=== PATIENT | male | born 1955 | race Caucasian/White ===

== ENCOUNTER 2017-05-05 08:32 | Inpatient (IN) | payer OTHER ==
[~2017-05-05] VITALS: Ht 180.3 cm; Wt 105.7 kg
--- NOTE | 2017-05-05 08:49 | NUR ---
PT TO ED FOR 24 HOURS OF WORSENING SOB. PT STATING HE WAS RECENTLY WORKING "WITH [employer] AND I THINK I NEED A CHEST XRAY" PT TAKEN TO EKG AL[place], DENIES CP, PALPITATIONS, DIZZINESS.
--- NOTE | 2017-05-05 08:52 | ED CARDIAC/CP/PALPITATIONS ---
History of Present Illness General Chief Complaint: Dyspnea (COPD, CHF, Other) Stated Complaint: SOB STARTED ON SATURDAY/COUGH Source: patient, friend Exam Limitations: no limitations Vital Signs & Intake/Output Vital Signs & Intake/Output Vital Signs Date Time Temp Pulse Resp B/P B/P Pulse O2 O2 Flow FiO2 Mean Ox Delivery Rate 05/05 1003 Room Air Room Air 05/05 0959 136 137/92 05/05 0910 136 05/05 0908 98.3 149 18 145/74 100 Room Air Allergies Coded Allergies: codeine (Intermediate, NAUSEA 05/05/17) Triage Note: PT TO ED FOR 24 HOURS OF WORSENING SOB. PT STATING HE WAS RECENTLY WORKING "WITH [employer] AND I THINK I NEED A CHEST XRAY" PT TAKEN TO EKG [place], DENIES CP, PALPITATIONS, DIZZINESS. Triage Nurses Notes Reviewed? 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 Patient states that over the past week he's been having increasing shortness of breath and a nonproductive cough. Patient states for the past 2 days he has been unable to sleep at night because he gets short of breath. Patient denies any fevers or chills. Patient presents requesting a chest x-ray to make sure he doesn't have any dust in his lungs from the [employer]. There is no nausea or vomiting. There is no anorexia. Patient states that his legs are little bit more swollen than normal. Past History Medical History Any Pertinent Medical History? see below for history Cardiovascular: AFIB (ONCE), hypertension, hyperlipidemia Surgical History Surgical History: AVR Psychosocial History Tobacco Use: Quit >30 days ago ETOH Use: occasional use Illicit Drug Use: denies illicit drug use Family History Hx Contributory? No Review of Systems Review of Systems Constitutional: Reports: no symptoms. EENTM: Reports: no symptoms. Respiratory: Reports: see HPI, cough, short of breath. Cardiovascular: Reports: no symptoms. GI: Reports: no symptoms. Genitourinary: Reports: no symptoms. Musculoskeletal: Reports: no symptoms. Skin: Reports: no symptoms. Neurological/Psychological: Reports: no symptoms. Hematologic/Endocrine: Reports: no symptoms. Immunologic/Allergic: Reports: no symptoms. All Other Systems: Reviewed and Negative Physical Exam Physical Exam General Appearance: well developed/nourished, alert, awake, mild distress Head: atraumatic, normal appearance Eyes: Bilateral: PERRL, EOMI. Ears, Nose, Throat: normal pharynx, normal ENT inspection Neck: normal inspection, supple, full range of motion, NO JVD BUT HAS A BULL NECK Respiratory: crackles Cardiovascular: normal peripheral pulses, tachycardia Gastrointestinal: normal bowel sounds, soft, non-tender, no organomegaly Back: normal inspection, normal range of motion Extremities: pedal edema Neurologic/Psych: no motor/sensory deficits, awake, alert, oriented x 3, normal gait, normal mood/affect Skin: intact, normal color, warm/dry Lymphatic: no anterior cervical raul Core Measures ACS in differential dx? Yes Severe Sepsis Present: No Septic Shock Present: No Progress Differential Diagnosis: AMI, CHF/pulm edema Plan of Care: Orders Procedure Date/time Status Regular Diet 05/05 L Active Saline Lock 05/05 1015 Active Misc Message 05/05 1015 Active ED Holding Orders 05/05 1015 Active Vital Signs 05/05 1015 Active Activity/Ambulation 05/05 1015 Active Code Status 05/05 1015 Active Admit to inpatient 05/05 1012 Active Add-on Test (ER Only) 05/05 0957 Active B-TYPE NATRIURETIC PEP (BNP) 05/05 0903 Active Telemetry/Nuisance Wildlife Control Operator 05/05 0852 Active TROPONIN LEVEL 05/05 0852 Active COMPREHENSIVE METABOLIC PANEL 05/05 0852 Active CBC WITHOUT DIFFERENTIAL 05/05 0852 Complete EKG 05/05 0836 Active Laboratory Tests 05/05/17 0903: Anion Gap 9, Estimated GFR > 60, BUN/Creatinine Ratio 18.8, Glucose 169 H, Calcium 8.8, Total Bilirubin 1.9 H, AST 27, ALT 50, Alkaline Phosphatase 43, Troponin I 0.02, Yuq-[id number]-Mmggqwagwkr Pept Pending, Total Protein 6.9, Albumin 4.1, Globulin 2.8, Albumin/Globulin Ratio 1.5, CBC w Diff NO MAN DIFF REQ, RBC 4.33 L, MCV 91.3, MCH 30.4, RDW 13.4, MPV 8.9, Gran % 73.4, Lymphocytes % 11.4 L, Monocytes % 13.1 H, Eosinophils % 1.9, Basophils % 0.2, Absolute Granulocytes 6.9 H, Absolute Lymphocytes 1.1 L, Absolute Monocytes 1.2 H, Absolute Eosinophils 0.2, Absolute Basophils 0, PUBS MCHC 33.4 Diagnostic Imaging: Viewed by Me: Radiology Read. Discussed w/RAD: Radiology Read. CXR Impression: PATIENT: JEF MICHAEL PRESENT AGE: 62 PATIENT ACCOUNT NO: [id number] : 54 LOCATION: [facility] ORDERING PHYSICIAN: NUBIA TOBIN MD SERVICE DATE: 05/05/17 EXAM TYPE: RAD - XRY-CHEST XRAY, PA AND LATERAL EXAMINATION: XR CHEST CLINICAL INFORMATION: Cough, chest pain COMPARISON: None TECHNIQUE: 2 views of the chest were obtained. FINDINGS: Median sternotomy wires are identified with a fracture of the most superior and most inferior sternotomy wires. The cardiac silhouette is mildly enlarged. Diffuse interstitial lines are seen with Ruthie B-lines and trace pleural effusions. No focal consolidation. No pneumothorax. IMPRESSION: Mild cardiomegaly. Interstitial pulmonary edema. No consolidation to suggest pneumonia. DICTATED BY: LISET KRISHNAMURTHY MD DATE/TIME DICTATED:05/05/17920 CREEL OPERATOR:JANICE DATE/TIME TRANSCRIBED:05/05/17920 CONFIDENTIAL, DO NOT COPY WITHOUT APPROPRIATE AUTHORIZATION. <Electronically signed in Other Vendor System> SIGNED BY: LISET KRISHNAMURTHY MD 05/05/17925 Initial ED EKG: S TACH WITH RBBB AND NSSTT CHANGES. NO OLD TO COMPARE. Rhythm Strip: sinus tachycardia Departure Departure Disposition: STILL A PATIENT Condition: Stable Clinical Impression Primary Impression: Pulmonary edema Departure Forms: Customer Survey General Discharge Information Admission Note Spoke With: MIRTHA BARBOSA MD, V. Documentation of Exam: Documentation of any treatments & extenuating circumstances including Concerns Regarding Discharge (functional status, medication knowledge or non-compliance, living conditions, etc.) that warrant an admission rather than observation: [ TELE MONITORING, IV DIURESIS, CARDIOLOGY EVAL, ECHOCARDIOGRAM] Critical Care Note Critical Care Note Critical Care Time: mins: (45 MIN)
--- NOTE | 2017-05-05 09:09 | NUR ---
BLOOD WORK DRAWN AND SENT TO LAB: SST, LAV, BLUE, HAIRSTON TOPS. IV EST AND NS LITER BOLUS INFUSING NOW.
[2017-05-05 09:23] LABS: ABSOLUTE BASOPHIL COUNT 0 /CUMM (0.0-0.2); ABSOLUTE EOSINOPHIL COUNT 0.2 /CUMM (0.0-0.7); ABSOLUTE GRANULOCYTE CT 6.9 /CUMM (1.4-6.5); ABSOLUTE LYMPH COUNT 1.1 /CUMM (1.2-3.4); ABSOLUTE MONOCYTE COUNT 1.2 /CUMM (0.10-0.60); BASOPHIL % 0.2 % (0.0-2.0); EOSINOPHIL % 1.9 % (0-5); GRANULOCYTE % 73.4 % (42.2-75.2); HEMATOCRIT 39.5 % (42-52); MEAN CORPUSCULAR HGB 30.4 PG (27.0-31.0); MEAN CORPUSCULAR HGB CONC 33.4 G/DL (33.0-37.0); MEAN CORPUSCULAR VOLUME 91.3 FL (80.0-94.0); MEAN PLATELET VOLUME 8.9 FL (7.4-10.4); PLATELET COUNT 148 /CUMM (130-400); RBC DISTRIBUTION WIDTH 13.4 % (11.5-14.5); RED BLOOD CELL CT 4.33 /CUMM (4.70-6.10); WHITE BLOOD CELL COUNT 9.4 /CUMM (4.8-10.8)
--- NOTE | 2017-05-05 09:25 | NUR ---
DR. TOBIN AWARE OF HEART RATE, CONTINUING TO MONITOR WITH FLUIDS SINCE PT TOOK METOPROLOL PRIOR TO ARRIVAL.
--- NOTE | 2017-05-05 09:26 | RADIOLOGY REPORT ---
EXAMINATION: XR CHEST CLINICAL INFORMATION: Cough, chest pain COMPARISON: None TECHNIQUE: 2 views of the chest were obtained. FINDINGS: Median sternotomy wires are identified with a fracture of the most superior and most inferior sternotomy wires. The cardiac silhouette is mildly enlarged. Diffuse interstitial lines are seen with Ruthie B-lines and trace pleural effusions. No focal consolidation. No pneumothorax. IMPRESSION: Mild cardiomegaly. Interstitial pulmonary edema. No consolidation to suggest pneumonia.
--- NOTE | 2017-05-05 10:05 | NUR ---
PT MEDICATED WITH LOPRESSOR AND LASIX PER EMAR. TOLERATED WELL. WILL CONTINUE TO MONITOR.
--- NOTE | 2017-05-05 10:20 | NUR ---
DR. BUENROSTRO (CARDIOLOGY) AT BEDSIDE FOR EVAL.
[2017-05-05] MEDS ORDERED: METOPROLOL SUCC50 M2 PO (11:00)
[2017-05-05] MEDS ORDERED: LISINOPRIL20 M1 PO (11:01)
[2017-05-05] MEDS ORDERED: OMEGA 3-6-9 11200 MG PO (11:01)
[2017-05-05] MEDS ORDERED: VYTORIN 10-101 EACH PO (11:03)
--- NOTE | 2017-05-05 11:04 | NUR ---
PT ASSIGNED TO 179-1
--- NOTE | 2017-05-05 11:47 | NUR ---
SPOKE WITH DR. TOBIN, CARDIZEM DRIP TO BE INCREASED TO 15 MG/HOUR. ANOTHER BOLUS DOSE OF CARDIZEM GIVEN. ECHO AT BEDSIDE.
--- NOTE | 2017-05-05 12:01 | NUR ---
REPORT GIVEN TO BRIAN MON. PT TO BE TRANSPORTED UPSTAIRS AFTER ECHO IS COMPLETED.
--- NOTE | 2017-05-05 13:19 | ECHOCARDIOGRAM REPORT ---
JEF MICHAEL Age: 62 : 1955 Gender: M Exam Date: 05/05/2017 11:49 Exam Location: ER Ht (in): 71 Wt (lb): 246 BSA: 2.40 BP: 139 / 97 Ordering Physician: MIRTHA OROPEZA MD Referring Physician: MIRTHA OROPEZA MD Technologist: Agatha Vizcarra RDCS Room Number: [id number] Indications: HEART FAILURE Rhythm: Atrial flutter Technical Quality: Fair FINDINGS Left Ventricle Left ventricular cavity size at the upper limits of normal. Mild concentric left ventricular hypertrophy. There is abnormal septal contractility pattern possibly secondary to left bundle branch block. Left ventricular systolic function is moderately globally reduced. Estimated ejection fraction is 35-40%. Definity contrast was used to improve suboptimal left ventricular endocardial definition. Right Ventricle Normal right ventricular size and function. Right Atrium Normal right atrial size. Left Atrium Mild to moderate left atrial dilatation. Mitral Valve Mild thickening/calcification of the mitral valve leaflets. Mild mitral regurgitation. Aortic Valve There is a bioprosthetic aortic valve. The leaflets are fairly well seen and are thin and appear to open well. There is no aortic stenosis and no aortic regurgitation. Tricuspid Valve Tricuspid valve is normal in structure and function. Mild-to- moderate tricuspid regurgitation. Right ventricular systolic pressure estimated to be elevated at 40-45 mmHg. Pulmonic Valve Pulmonic valve not well visualized, grossly normal. No pulmonic regurgitation. Pericardium No pericardial or pleural effusion. Great Vessels Normal size aortic root. CONCLUSIONS Left ventricular cavity size at the upper limits of normal. Mild concentric left ventricular hypertrophy. Left ventricular systolic function is moderately globally reduced. Estimated ejection fraction is 35-40%. Mild to moderate left atrial dilatation. Mild thickening/calcification of the mitral valve leaflets. Mild mitral regurgitation. There is a bioprosthetic aortic valve. The leaflets are fairly well seen and are thin and appear to open well. There is no aortic stenosis and no aortic regurgitation. Right ventricular systolic pressure estimated to be elevated at 40- 45 mmHg. Mirtha Oropeza M.D. (Electronically Signed) Final Date: 05 May 2017 13:18 MEASUREMENTS (Male / Female) Normal Values 2D ECHO LV Diastolic Diameter PLAX 5.4 cm 4.2 - 5.9 / 3.9 - 5.3 cm LV Systolic Diameter PLAX 4.3 cm 2.1 - 4.0 cm LV Fractional Shortening PLAX 20.4 % 25 - 46 % LV Ejection Fraction 2D Teich 41.2 % IVS Diastolic Thickness 1.3 cm LVPW Diastolic Thickness 1.1 cm LV Relative Wall Thickness 0.4 RV Internal Dim ED PLAX 3.1 cm 1.9 - 3.8 cm LVOT Diameter 2.1 cm Aortic Root Diameter 3.4 cm LA Systolic Diameter LX 5.0 cm 3.0 - 4.0 / 2.7 - 3.8 cm LA Volume 72.0 cm 18 - 58 / 22 - 52 cm Ascending Aorta Diameter 2.8 cm DOPPLER AV Peak Velocity 151.0 cm/s AV Peak Gradient 9.1 mmHg AV Mean Velocity 110.0 cm/s AV Mean Gradient 5.0 mmHg AV Velocity Time Integral 23.3 cm LVOT Peak Velocity 148.0 cm/s LVOT Peak Gradient 8.8 mmHg LVOT Mean Velocity 90.5 cm/s LVOT Mean Gradient 4.0 mmHg LVOT Velocity Time Integral 20.9 cm LVOT Stroke Volume 72.4 cm AV Area Cont Eq vti 3.1 cm AV Area Cont Eq pk 3.4 cm MV Peak Velocity 167.0 cm/s MV Peak Gradient 11.2 mmHg MV Mean Velocity 75.8 cm/s MV Mean Gradient 3.0 mmHg Mitral E Point Velocity 160.0 cm/s MV PHT Velocity 174.0 cm/s MV Deceleration [place] 662.0 cm/s MV Pressure Half Time 78.9 ms MV Area PHT 2.8 cm MV Deceleration Time 114.0 ms TR Peak Velocity 281.0 cm/s TR Peak Gradient 31.6 mmHg Right Atrial Pressure 10.0 mmHg Pulmonary Artery Systolic Pressu 41.6 mmHg Right Ventricular Systolic Press 41.6 mmHg PV Peak Velocity 89.6 cm/s PV Peak Gradient 3.2 mmHg PV Mean Velocity 55.7 cm/s PV Mean Gradient 2.0 mmHg PV Velocity Time Integral 11.9 cm LV E' Lateral Velocity 18.7 cm/s Mitral E to LV E' Lateral Ratio 8.6 LV E' Septal Velocity 5.1 cm/s Mitral E to LV E' Septal Ratio 31.6
[2017-05-05 13:38] VITALS: BP 146/78
--- NOTE | 2017-05-05 13:38 | History & Physical ---
DONG ANTHONY,[facility] 05/05/17 1338: General Information and [facility] MD Statement: I have seen and personally examined JEF MICHAEL and documented this H&P. The patient is a 62 year old M who presented with a patient stated chief complaint of [worsening shortness of breath on exertion and cough]. Source of Information: patient, friend Exam Limitations: no limitations History of Present Illness: Mr. Cummings is a 62-year-old man with a past medical history of ??aortic stenosis status post aortic valve replacement with a pig valve in 2009, hypertension, hyperlipidemia, asthma, and hepatitis C. He presents with progressively worsening shortness of breath on exertion for the past 2 weeks. He states that his shortness of breath on exertion started insidiously over the past 2 weeks or so and was associated with intermittent cough productive of scanty brownish sputum, chest discomfort with coughing only, and wheezing. He also has been having increased fatigue. He admitted to intermittent palpitations especially at night for the same period. He denies chest pain, lightheadedness or leg swelling. He denied orthopnea or paroxysmal nocturnal dyspnea. He however noted reduced appetite, but denies abdominal pain, nausea, vomiting, diarrhea, constipation or blood in stools. He has noted that his urine has become darker recently. His shortness of breath on exertion worsened today until he was convinced to come in to the ER by his partner. Of note he states that he had one episode of "transient A. fib" some years ago that spontaneously resolved. He follows up with a Stationary Steam Engineer, Dr. Neda Fu of [facility], and reports that he had a recent checkup 1 month ago, including an echocardiogram for his aortic valve and was told he was in good cardiac health. On admission in the ER he was found to be in atrial flutter with a rapid ventricular rate to the 130s. He was started on IV Cardizem drip after IV metoprolol and Cardizem pushes, along with an IV heparin drip for anticoagulation. Allergies/Medications Allergies: Coded Allergies: codeine (Intermediate, NAUSEA 05/05/17) Home Med list Aspirin (Aspirin*) 81 MG TAB.CHEW 1 TAB PO AT BEDTIME HEART HEALTH (Reported) Ezetimibe/Simvastatin (Vytorin 10-10 MG Tablet) 10 MG-10 MG TABLET 1 TAB PO DAILY CHOLESTEROL (Reported) Fish Oil/Borage/Flax/Om3,6,9#1 ([place] 3-6-9 1,200 MG Softgel) 1,200 MG CAPSULE 1 CAP PO DAILY HEART HEALTH (Reported) Lisinopril 20 MG TABLET 1 TAB PO DAILY HTN (Reported) Metoprolol Succinate 50 MG TAB.ER.24H 75 MG PO DAILY HTN (Reported) Past History Travel History Traveled to [place] past 21 day No Medical History Blood Transfusion Hx: Yes Type of Reaction: Other (see notes), HEP C Cardiovascular: AFIB (ONCE), hypertension, hyperlipidemia Hepatic: HEPATITIS C Blood Disorders: NONE Cancer(s): NONE History of MRSA: No History of VRE: No History of CDIFF: No Isolation History: Standard Surgical History Surgical History: appendectomy, AVR, tonsillectomy Past Family/Social History Family History Relations & Conditions if any patient *No pertinent family history Adopted person Psychosocial History Where do you live? Home Who Do You Live With? self Services at Home: None Primary Language: Citizen Of [place] Smoking Status: Former Smoker (11/07 PPD X 5 years.Quit @ 22 yo) ETOH Use: occasional use Illicit Drug Use: denies illicit drug use Functional Ability ADLs Independent: dressing, eating, toileting, bathing. Ambulation: independent IADLs Independent: shopping, housework, finances, food prep, telephone, transportation , medication admin. Employment History Employment Employed Profession/Employer [employer] Review of Systems Review of Systems Constitutional: Reports: see HPI, weakness. Denies: chills, fever. Exam & Diagnostic Data Last 24 Hrs of Vital Signs/I&O Vital Signs Date Time Temp Pulse Resp B/P B/P Pulse O2 O2 Flow FiO2 Mean Ox Delivery Rate 05/05 1452 97.8 103 20 128/76 93 Room Air 05/05 1338 100.4 138 20 146/78 91 Room Air 05/05 1313 91 Room Air 05/05 1154 140 141/87 07/ 1154 99.3 140 20 141/87 94 Room Air Room Air 07/02 1104 138 139/97 07/ 1052 99.2 138 20 139/97 94 Room Air Room Air 05/05 1003 Room Air Room Air 05/05 0959 136 137/92 / 0910 136 07/ 0908 98.3 149 18 145/74 100 Room Air Intake & Output 05/05 1600 / 0800 07 0000 Intake Total 562 Output Total 1658 Balance -1096 Intake, IV 82 Intake, Oral 480 Output, Urine 1658 Patient 246 lb Weight Weight Chair scale Measurement Method Physical Exam General Appearance Alert, Oriented X3, Cooperative, No Acute Distress Skin No Rashes Skin Temp/Moisture Exam: Warm/Dry Sepsis Skin Exam (color): Normal for Ethnicity HEENT Atraumatic, PERRLA, EOMI, Mucous Membr. moist/pink Neck Supple, No JVD, No thryomegaly, +2 Carotid Pulse wo Bruit Lymphatic Cervical nl Cardiovascular Regular Rate, Normal S1, Normal S2 Lungs bilateral scattered wheeze, bibasilar fine crackles and reduced air entry Abdomen Normal Bowel Sounds, Soft, No Tenderness, No Hepatospenomegaly Neurological Normal Speech, Strength at 5/5 X4 Ext, Normal Tone Extremities No Edema, Normal Pulses Vascular Normal Pulses, Pulses Symmetrical (normal dorsalis pedis) Diagnostic Data EKG Results Atrial flutter. QTC 558 ms. Heart rate 138 bpm CXR Results Mild cardiomegaly. Interstitial pulmonary edema. Diffuse interstitial lines with Ruthie B-lines and trace pleural effusions. Assessment/Plan Assessment: Mr. Cummings is a 62-year-old man with a past medical history of ??aortic stenosis status post aortic valve replacement with a pig valve in 2009, hypertension, hyperlipidemia, asthma, and hepatitis C. He presents with progressively worsening shortness of breath on exertion for the past 2 weeks associated with intermittent palpitations and scantily productive cough. He has bibasilar crackles on exam, his proBNP is elevated and his chest x-ray indicated pulmonary vascular congestion. An echo cardioversion showed a reduced ejection fraction of 35-40% with a normal functioning bioprosthetic aortic valve. His symptoms and presentation are consistent with congestive heart failure likely related to his atrial flutter which may have been going on for some time already. He has a self-reported prior history of "transient atrial fibrillation " which will need to be clarified from his outpatient bioinformatics support specialist. He also states that he was seen a month ago by his bioinformatics support specialist and was not informed of any alarming change in his cardiac status. We will need to request records from his bioinformatics support specialist for this. In the interim we will continue his IV Cardizem drip and aim for a ventricular rate of less than 110 bpm. We will also continue his home medication of metoprolol XL 75 mg daily for hypertension. In addition we will continue anticoagulation with an IV heparin drip. Hopefully he will cardiovert spontaneously. If he fails to spontaneously cardiovert we will have to do a Trans esophageal echocardiogram (JASEN) and cardioversion after he has received at least 48 hours of anticoagulation. We will also diurese him with IV Lasix 40 mg every 12 hours and closely watch his electrolytes and fluid input and output. Problem list 1. Atrial flutter with rapid ventricular rate 2. Congestive heart failure 3. Hypertension 4. Hyperlipidemia 5. History of bioprosthetic aortic valve 6. History of hepatitis C with previous failed to interferon therapy 1. Atrial flutter with rapid ventricular rate * Admit to telemetry floor * Serial EKGs and troponins 3 * Continue IV Cardizem drip and uptitrate as needed to keep heart rate less than 110 bpm * Continue IV heparin drip for anticoagulation * Add on TSH and free T4 * Continue home medication of by mouth metoprolol XL 75 mg daily for hypertension * Obtain records from bioinformatics support specialist, Dr. Neda Fu of [facility] about previous echocardiograms and recent visits * If no improvement in heart rate or spontaneous cardioversion will plan for JASEN cardioversion after at least 48 hours of anticoagulation 2. Congestive heart failure * Echocardiogram showed EF of 35-40% * Diurese with IV Lasix 40 mg every 12 hours * Replete electrolytes magnesium and potassium * Monitor BEP and electrolytes closely * Continue lisinopril 20 mg at bedtime for hypertension 3. Hypertension * Continue lisinopril 20 mg at bedtime for hypertension * Continue metoprolol XL 75 mg daily * Add on hemoglobin A1c to screen for diabetes 4. Hyperlipidemia * Start Lipitor 5 mg daily (patient takes simvastatin 10 mg daily at home) 5. History of bioprosthetic aortic valve * Echocardiogram showed normal aortic valve leaflets and function * Continue home medications for hypertension 6. History of hepatitis C with failed interferon therapy * His liver function tests show elevated bilirubin of 1.9 predominantly unconjugated * Transaminases are within normal limits * Continue to monitor liver function tests 7. DVT prophylaxis * IV heparin drip 8. CODE STATUS * Full code 9. Pain pathway By mouth Motrin 400 mg every 6 hours when necessary for [id number] pain, IV morphine 4 mg every 4 hours when necessary for severe pain As Ranked By This Provider Problem List: 1. Pulmonary edema 2. Atrial flutter 3. History of aortic valve replacement with bioprosthetic valve Core Measures/Miscellaneous Acute Coronary Syndrome ACS Diagnosis: No Cerebrovascular Accident CVA/TIA Diagnosis: No Congestive Heart Failure CHF Diagnosis: Yes Date of most recent Echo: 05/05/17 Last Known EF %: 40 KRISTI/ARB for EF <40%: Yes VTE (View Protocol) VTE Risk Factors: Acute medical illness, Age > 40, CHF or Resp failure [facility] prophylaxis d/t: No contraindications No VTE Pharm Prophylaxis d/t: No contraindications VTE Diagnosis: No VTE Type: NONE VTE Confirmed by (Test): NONE Sepsis (View Protocol) Severe Sepsis Present: No Septic Shock Septic Shock Present: No Miscellaneous Documentation Attending Case Discussed With: MIRTHA BARBOSA MD, V. Primary Care Physician: MAITE REYNOSO MD Patient sees these Specialists Stationary Steam Engineer, Dr. Neda Fu of [facility] Level of Patient Care: Telemetry MIRTHA ABRBOSA MD 05/05/17 1422: Attending MD Review Statement Attending Statement Attending MD Statement: examined this patient, discuss w/resident/PA/VULCANIZER OPERATOR, agreed w/resident/PA/VULCANIZER OPERATOR, reviewed EMR data (avail) Attending Assessment/Plan: This patient is a 62-year-old man who had aortic valve replacement with a bioprosthetic valve approximately 9 years ago. He has a known heart murmur most of his life so most likely this was a bicuspid aortic valve. He denies any other cardiac issues. There is a question of transient atrial fibrillation in the past but we don't have any details of this. He has been doing fine and followed regularly by a bioinformatics support specialist with no other issues. About 2 weeks ago he began noticing increasing fatigue and decreasing exercise tolerance. Subsequently he began developing shortness of breath on exertion and finally today his shortness of breath became more marked and he came to the emergency department. There he was found to be tachycardic and in congestive heart failure on chest x-ray. His EKG showed probable atrial flutter with 2:1 AV conduction and a left bundle branch block pattern. He was started on intravenous Lasix and intravenous Cardizem drip and anticoagulation with heparin. At no point did he have any chest pain. His labs were unremarkable except for elevated Pro BNP of 3150. Initial troponin was negative at 0.02. His physical examination was remarkable for tachycardia and no murmurs. His lungs revealed a few fine crackles in the bases. The rest of his physical was unremarkable. This patient presents with tachycardia, most likely atrial flutter, with congestive heart failure. His echocardiogram documents reduced left ventricular systolic function. I suspect he's had his arrhythmia for some time. By history it is at least a week but possibly more. 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 I would recommend intravenous Lasix twice a day until the congestive heart failure resolves. I recommend full anticoagulation and an attempt to decrease his heart rate to the normal range with IV Cardizem and continuing him on his usual beta edy. Once his heart rate is controlled if he does not spontaneously converted to sinus rhythm we can consider him for JASEN directed cardioversion.
[2017-05-05] MEDS ORDERED: ASPIRIN81 M4 PO (14:44)
[2017-05-05 14:52] VITALS: BP 128/76
--- NOTE | 2017-05-05 16:28 | Admission Certification ---
Admission Certification Certification Statement - As attending physician, I certify that at the time of - admission, based on clinical presentation, severity of - symptoms, need for further diagnostic testing and - therapeutic interventions, and risk of adverse outcomes - without in-hospital treatment, in my clinical assessment, - this patient requires an acute hospital stay for a minimum - of two nights or longer. I have also considered psychsocial - factors such as support system, advanced age, financial - issues, cognitive issues, and failed out-patient treatments, - past re-admission history, safety of patient, and lack of - compliance as applicable. Specific rationale supporting this admission is: atrial flutter new onset and CHF
[2017-05-05 18:22] LABS: PT 14.2 SEC (9.4-12.5); PTT 43 SEC (25-37)
[2017-05-05 23:39] VITALS: BP 104/62
[2017-05-06 02:59] LABS: ABSOLUTE BASOPHIL COUNT 0 /CUMM (0.0-0.2); ABSOLUTE EOSINOPHIL COUNT 0.4 /CUMM (0.0-0.7); ABSOLUTE GRANULOCYTE CT 3.4 /CUMM (1.4-6.5); ABSOLUTE LYMPH COUNT 2.1 /CUMM (1.2-3.4); ABSOLUTE MONOCYTE COUNT 1.2 /CUMM (0.10-0.60); BASOPHIL % 0.4 % (0.0-2.0); GRANULOCYTE % 48.3 % (42.2-75.2); HEMATOCRIT 38.2 % (42-52); MEAN CORPUSCULAR HGB 30.6 PG (27.0-31.0); MEAN CORPUSCULAR HGB CONC 33.3 G/DL (33.0-37.0); MEAN PLATELET VOLUME 8.8 FL (7.4-10.4); PLATELET COUNT 157 /CUMM (130-400); RBC DISTRIBUTION WIDTH 13.2 % (11.5-14.5); RED BLOOD CELL CT 4.15 /CUMM (4.70-6.10); WHITE BLOOD CELL COUNT 7.1 /CUMM (4.8-10.8)
[2017-05-06 03:16] LABS: PTT > 120 SEC (25-37)
--- NOTE | 2017-05-06 06:48 | PN- Housestaff ---
Subjective Follow-up For: 1. Atrial flutter with rapid ventricular rate 2. Congestive heart failure 3. Hypertension 4. Hyperlipidemia Complaints: no complaints Tele-Events Since Last Visit: A FLUTTER , 70-130, NO EVENTS Subjective: i HAVE PERSONALLY SEEN AND EXAMINED MR FERNANDA SARGENT THIS MORNING AT BED SIDE , HE LOOKED COMFORTABLE IN NO ACUTE DISTRESS AND REPORTED THAT HE DOESN'T HAVE PALPITATION OR CHEST DISCOMFORT ANY MORE HEART RATE THIS MORNING WAS 138 BUT HE WAS NOT FEELING ANY DISCOMFORT Review of Systems Constitutional: Denies: no symptoms. EENTM: Reports: no symptoms. Cardiovascular: Reports: no symptoms. Respiratory: Reports: no symptoms. Gastrointestinal: Reports: no symptoms. Genitourinary: Reports: no symptoms. Musculoskeletal: Reports: no symptoms. Skin: Reports: no symptoms. Neurological/Psychological: Reports: no symptoms. Hematologic/Endocrine: Reports: no symptoms. Immunologic/Allergic: Reports: no symptoms. Objective Last 24 Hrs of Vital Signs/I&O Vital Signs Date Time Temp Pulse Resp B/P B/P Pulse O2 O2 Flow FiO2 Mean Ox Delivery Rate 05/06 0916 141 134/76 / 0800 Room Air 05/06 0720 98.8 102 20 134/76 93 Room Air 07/ 2339 99.0 101 20 104/62 94 Room Air / 2246 Room Air 07/ 1746 112 128/76 07/02 1452 97.8 103 20 128/76 93 Room Air 07/02 1338 100.4 138 20 146/78 91 Room Air / 1313 91 Room Air 05/05 1154 140 141/87 07/ 1154 99.3 140 20 141/87 94 Room Air Room Air 05/05 1104 138 139/97 Intake & Output 05/06 1600 /03 0800 05/06 0000 Intake Total 955 Output Total 400 1000 Balance -400 -45 Intake, IV 275 Intake, Oral 680 Output, Urine 400 1000 Physical Exam General Appearance: Alert, Oriented X3, Cooperative, No Acute Distress Skin: No Rashes, No Breakdown, No Significant Lesion Skin Temp/Moisture Exam: Warm/Dry Sepsis Skin Exam (color): Normal for Ethnicity HEENT: Atraumatic, PERRLA, EOMI, Mucous Membr. moist/pink Neck: Supple, No JVD, +2 Carotid Pulse wo Bruit, No LAD Cardiovascular: Normal S1, Normal S2, No Murmurs Lungs: Clear to Auscultation, Normal Air Movement Abdomen: Normal Bowel Sounds, Soft, No Tenderness Neurological: Normal Speech, Strength at 5/5 X4 Ext, Normal Tone, Sensation Intact, Cranial Nerves 3-12 NL, Reflexes 2+ Extremities: No Clubbing, No Cyanosis (1+ BILATERAL PITTING LE EDEMA) Current Medications: Current Medications Sig/Darya Start time Last Medication Dose Route Stop Time Status Admin Aspirin 81 MG AT BEDTIME 05/05 2200 AC 05/05 PO 2159 Atorvastatin Calcium 5 MG AT BEDTIME 05/05 220 AC 05/05 PO 2159 Diltiazem HCl 5 MG ONCE ONE 05/05 1730 DC 05/05 IV 05/05 1731 1746 Diltiazem HCl 10 MG ONCE ONE 05/05 1200 DC 05/05 IV PUSH 05/05 1201 1154 Diltiazem HCl 0 .STK-MED ONE 05/05 1145 DC .ROUTE Diltiazem HCl 125 MG Q12H 05/05 1030 AC 05/06 Dextrose/Water 100 ML IV 0538 Ezetimibe 10 MG AT BEDTIME 05/05 220 AC 05/05 PO 2159 Fish Oil 1,050 MG DAILY 05/06 1000 AC 05/06 PO 0916 Furosemide 40 MG 7:30 AM, & 4:30 PM 05/06 0730 AC 05/06 IV 0803 Furosemide 40 MG 1700 05/05 1700 DC 05/05 IV 05/05 1701 1618 Heparin Sodium 8,400 UNIT ONE ONE 05/05 2030 DC 05/05 (Porcine) IV 05/05 2031 2242 Heparin Sodium/ 25,000 UNIT Q24H / 1030 AC 05/06 Dextrose IV 0925 Dextrose/Water 500 ML Ibuprofen 400 MG Q6P PRN 05/05 1445 AC PO Lisinopril 20 MG AT BEDTIME 05/06 2200 AC PO Magnesium Oxide 400 MG ONE ONE 05/06 0745 DC 05/06 PO 05/06 0746 0915 Magnesium Sulfate 1 GM ONCE ONE 05/05 1700 DC 05/05 Dextrose/Water 100 ML IV 05/05 2059 1718 Metoprolol Succinate 75 MG DAILY 05/06 1000 AC 05/06 PO 0916 Morphine Sulfate 4 MG Q4P PRN 05/05 1445 AC IV Potassium Chloride 40 MEQ 0745 05/06 0745 DC 05/06 PO 05/06 0746 0914 Potassium Chloride 40 MEQ ONCE ONE 05/05 1700 DC 05/05 PO 05/05 1701 1718 Last 24 Hrs of Lab/Nabeel Results Last 24 Hrs of Labs/Mics: Laboratory Tests 05/06/17 1030: APTT Pending 05/06/17 0230: Anion Gap 10, Estimated GFR > 60, BUN/Creatinine Ratio 20.0, Triglycerides 62, Cholesterol 114, LDL Cholesterol, Calc 74, HDL Cholesterol 28 L, Cholesterol/ HDL Ratio 4, APTT > 120 *H, CBC w Diff NO MAN DIFF REQ, RBC 4.15 L, MCV 92.0, MCH 30.6, RDW 13.2, MPV 8.8, Gran % 48.3, Lymphocytes % 29.8, Monocytes % 16.5 H, Eosinophils % 5.0, Basophils % 0.4, Absolute Granulocytes 3.4, Absolute Lymphocytes 2.1, Absolute Monocytes 1.2 H, Absolute Eosinophils 0.4, Absolute Basophils 0, PUBS MCHC 33.3 05/05/17 2250: Troponin I 0.03 05/05/17 1650: Troponin I 0.03, PT 14.2 H, INR 1.36 H, APTT 43 H Orders EKG Findings: Atrial flutter. QTC 558 ms. Heart rate 138 bpm Radiology Findings: Mild cardiomegaly. Interstitial pulmonary edema. Diffuse interstitial lines with Ruthie B-lines and trace pleural effusions. Assessment/Plan Assessment: Mr. 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 He presented yesterday to the ED after 2 weeks of progressive worsening of shortness of breath on exertion which was associated with palpitation and the patient says that he was seen a month ago by his utilities and maintenance supervisor and didn't have any abnormalities in the ED the patient was started on Cardizem drip Problem list and plan: 1. Arterial flutter: * HR is better controlled today * Cardiology Recommend Cardioversion on May 08 if he does not convert spontaneously by then. * We'll keep him nothing by mouth tomorrow night after midnight * We'll continue to monitor him in the telemetry unit * his troponin is trending low 0.02, 0.03 and 0.03 * Continue IV Cardizem drip and uptitrate as needed to keep heart rate less than 110 bpm * Continue IV heparin drip for anticoagulation * will recontact his utilities and maintenance supervisor on Saturday ( Dr. Neda Fu of [facility] about previous echocardiograms and recent visits) 2. CHF: * patient has minimal LE edema and his chest was clear to auscultation this morning * Daily weights * check I&O * Echocardio am showed EF of 35-40% * Diurese with IV Lasix 40 mg every 12 hours * Monitor BEP and electrolytes closely * Continue lisinopril 20 mg at bedtime for hypertension 3. Hypertension: * his blood pressure was well controlled at 110/58 today * Continue lisinopril 20 mg at bedtime for hypertension * Continue metoprolol XL 75 mg daily * hemoglobin A1c is 5.6 (was ordered to r/o diabetes) 4. Hyperlipidemia * will be kept on Lipitor 5 mg daily (patient used to take simvastatin 10 mg daily at home) 5. History of bioprosthetic aortic valve * Echocardiogram showed normal aortic valve leaflets and function 6. History of hepatitis C with failed interferon therapy * His liver function tests show elevated bilirubin of 1.9 predominantly unconjugated on 05/05/17, will follow up on his liver functions 7. DVT prophylaxis * IV heparin drip CODE STATUS * Full code Problem List: 1. History of aortic valve replacement with bioprosthetic valve 2. Atrial flutter 3. Congestive heart failure 4. Hypertension 5. Hyperlipidemia 6. Pulmonary edema 7. History of hepatitis C virus infection Pain Ratin Pain Location: N/A Pain Goal: Remain pain free Pain Plan: By mouth Motrin 400 mg every 6 hours when necessary for [id number] pain, IV morphine 4 mg every 4 hours when necessary for severe pain Tomorrow's Labs & Rationales: PARTIAL THROMBOPLASTIN BASIC ELECTROLYTES PLUS BUN/CR PATIENT IS ON FRUSIMIDE AND HEPARIN DRIP DVT/Prophylaxis: pharmacological IV morphine 4 mg every 4 hours when necessary for severe pain Tomorrow's Labs & Rationales: PARTIAL THROMBOPLASTIN BASIC ELECTROLYTES PLUS BUN/CR PATIENT IS ON FRUSIMIDE AND HEPARIN DRIP DVT/Prophylaxis: pharmacological
[2017-05-06 07:20] VITALS: BP 134/76
--- NOTE | 2017-05-06 11:22 | PN- Cardiology ---
Subjective Subjective: The patient remains in atrial flutter with variable AV response. Currently his heart rate is in the 80s. 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 He is feeling better. He is able to take deep breaths. He continues to diuresis. He has no chest pain. His enzymes are negative. Objective Vital Signs and I&Os Vital Signs Date Time Temp Pulse Resp B/P B/P Pulse O2 O2 Flow FiO2 Mean Ox Delivery Rate 05/06 0916 141 134/76 07/ 0800 Room Air 07/ 0720 98.8 102 20 134/76 93 Room Air 07/ 2339 99.0 101 20 104/62 94 Room Air 07/ 2246 Room Air 07/ 1746 112 128/76 07/02 1452 97.8 103 20 128/76 93 Room Air 07/ 1338 100.4 138 20 146/78 91 Room Air / 1313 91 Room Air / 1154 140 141/87 07/02 1154 99.3 140 20 141/87 94 Room Air Room Air Intake & Output 05/06 1600 / 0800 07/03 0000 07/ 1600 / 0800 / 0000 Intake Total 955 562 Output Total 400 1000 1658 Balance - Intake, IV 275 82 Intake, Oral 680 480 Output, Urine 400 1000 1658 Patient 246 lb Weight Weight Chair scale Measurement Method Physical Exam: He is in no distress HEENT exam is normal Neck veins are not distended Chest is clear Heart reveals slightly irregular rhythm with no murmurs Extremities no edema Current Medications: Current Medications Sig/Darya Start time Last Medication Dose Route Stop Time Status Admin Aspirin 81 MG AT BEDTIME 05/05 2200 AC 05/05 PO 2159 Atorvastatin Calcium 5 MG AT BEDTIME / 2200 AC / PO 2159 Diltiazem HCl 5 MG ONCE ONE 05/05 1730 DC 07/ IV 05/05 1731 1746 Diltiazem HCl 10 MG ONCE ONE 05/05 1200 DC / IV PUSH 05/05 1201 1154 Diltiazem HCl 0 .STK-MED ONE 05/05 1145 DC .ROUTE Diltiazem HCl 125 MG Q12H 05/05 1030 AC 07 Dextrose/Water 100 ML IV 0538 Ezetimibe 10 MG AT BEDTIME 05/05 2200 AC 05/05 PO 2159 Fish Oil 1,050 MG DAILY 05/06 1000 AC 05/06 PO 0916 Furosemide 40 MG 7:30 AM, & 4:30 PM 05/06 0730 AC 05/06 IV 0803 Furosemide 40 MG 1700 05/05 1700 DC 05/05 IV 05/05 1701 1618 Heparin Sodium 8,400 UNIT ONE ONE 05/05 2030 DC 05/05 (Porcine) IV 05/05 203 2242 Heparin Sodium/ 25,000 UNIT Q24H 05/05 1030 AC 05/06 Dextrose IV 0925 Dextrose/Water 500 ML Ibuprofen 400 MG Q6P PRN 05/05 1445 AC PO Lisinopril 20 MG AT BEDTIME 05/06 220 AC PO Magnesium Oxide 400 MG ONE ONE 05/06 0745 DC 05/06 PO 05/06 0746 0915 Magnesium Sulfate 1 GM ONCE ONE 05/05 1700 DC 05/05 Dextrose/Water 100 ML IV 05/05 2059 1718 Metoprolol Succinate 75 MG DAILY 05/06 1000 AC 05/06 PO 0916 Morphine Sulfate 4 MG Q4P PRN 05/05 1445 AC IV Potassium Chloride 40 MEQ 05/06 DC 05/06 PO 05/06 0746 0914 Potassium Chloride 40 MEQ ONCE ONE 05/05 170 DC 05/05 PO 05/05 1701 1718 Results Last 48 Hrs of Labs/Mics: Laboratory Tests 05/06/17 1030: APTT Pending 05/06/17 0230: Anion Gap 10, Estimated GFR > 60, BUN/Creatinine Ratio 20.0, Triglycerides 62, Cholesterol 114, LDL Cholesterol, Calc 74, HDL Cholesterol 28 L, Cholesterol/ HDL Ratio 4, APTT > 120 *H, CBC w Diff NO MAN DIFF REQ, RBC 4.15 L, MCV 92.0, MCH 30.6, RDW 13.2, MPV 8.8, Gran % 48.3, Lymphocytes % 29.8, Monocytes % 16.5 H, Eosinophils % 5.0, Basophils % 0.4, Absolute Granulocytes 3.4, Absolute Lymphocytes 2.1, Absolute Monocytes 1.2 H, Absolute Eosinophils 0.4, Absolute Basophils 0, PUBS MCHC 33.3 05/05/17 2250: Troponin I 0.03 05/05/17 1650: Troponin I 0.03, PT 14.2 H, INR 1.36 H, APTT 43 H 05/05/17 0903: Anion Gap 9, Estimated GFR > 60, BUN/Creatinine Ratio 18.8, Glucose 169 H, Hemoglobin A1c 5.6, Calcium 8.8, Magnesium 1.8, Total Bilirubin 1.9 H, Direct Bilirubin 0.7 H, AST 27, ALT 50, Alkaline Phosphatase 43, Troponin I 0.02, Pro- B-Natriuretic Pept 3150 H, Total Protein 6.9, Albumin 4.1, Globulin 2.8, Albumin/Globulin Ratio 1.5, TSH 1.010, Free T4 1.12, CBC w Diff NO MAN DIFF REQ, RBC 4.33 L, MCV 91.3, MCH 30.4, RDW 13.4, MPV 8.9, Gran % 73.4, Lymphocytes % 11.4 L, Monocytes % 13.1 H, Eosinophils % 1.9, Basophils % 0.2, Absolute Granulocytes 6.9 H, Absolute Lymphocytes 1.1 L, Absolute Monocytes 1.2 H, Absolute Eosinophils 0.2, Absolute Basophils 0, PUBS MCHC 33.4, Hepatitis A IgM Ab NONREACTIVE, Hep Bs Antigen NONREACTIVE, Hep B Core IgM Ab Conf NONREACTIVE, Hepatitis C Antibody REACTIVE H Recent Imaging Studies: CONCLUSIONS Left ventricular cavity size at the upper limits of normal. Mild concentric left ventricular hypertrophy. Left ventricular systolic function is moderately globally reduced. Estimated ejection fraction is 35-40%. Mild to moderate left atrial dilatation. Mild thickening/calcification of the mitral valve leaflets. Mild mitral regurgitation. There is a bioprosthetic aortic valve. The leaflets are fairly well seen and are thin and appear to open well. There is no aortic stenosis and no aortic regurgitation. Right ventricular systolic pressure estimated to be elevated at 40- 45 mmHg. Alex Oropeza M.D. (Electronically Signed) Final Date: 05 May 2017 13:18 Assessment/Plan Assessment/Plan The patient remains in atrial flutter. His rate is better controlled. His congestive heart failure appears to be improving. I recommend continuing him on the same regimen at this time. I'll plan a JASEN directed cardioversion on him on May 08 if he does not convert spontaneously by then. Please keep him nothing by mouth tomorrow night after midnight. Please obtain records from his usual process eng TIA. Continue telemetry? Yes
[2017-05-06 11:37] LABS: PTT 52 SEC (25-37)
[2017-05-06 14:58] VITALS: BP 110/58
[2017-05-06 17:21] LABS: PTT 81 SEC (25-37)
[2017-05-06 23:03] VITALS: BP 128/64
[2017-05-07 06:47] VITALS: BP 124/80
[2017-05-07 06:49] LABS: PTT 79 SEC (25-37)
--- NOTE | 2017-05-07 08:22 | PN- Housestaff ---
Subjective Follow-up For: 1. Atrial flutter with rapid ventricular rate 2. Congestive heart failure 3. Hypertension 4. Hyperlipidemia Complaints: no complaints Tele-Events Since Last Visit: A FLUTTER, 71-98 NO EVENTS Subjective: Ii HAVE PERSONALLY SEEN AND EXAMINED MR FERNANDA SARGENT THIS MORNING AT BED SIDE , HE LOOKED COMFORTABLE IN NO ACUTE DISTRESS AND REPORTED THAT HE DOESN'T HAVE PALPITATION OR CHEST DISCOMFORT ANY MORE HEART RATE THIS MORNING WAS 64/min BUT HE WAS NOT FEELING ANY DISCOMFORT Review of Systems Constitutional: Denies: no symptoms. Cardiovascular: Denies: no symptoms. Respiratory: Denies: no symptoms. Gastrointestinal: Denies: no symptoms. Genitourinary: Denies: no symptoms. Skin: Denies: no symptoms. Objective Last 24 Hrs of Vital Signs/I&O Vital Signs Date Time Temp Pulse Resp B/P B/P Pulse O2 O2 Flow FiO2 Mean Ox Delivery Rate 05/07 0834 118 124/64 05/07 0647 97.6 64 20 124/80 96 Room Air 05/06 2303 98.6 65 16 128/64 95 Room Air 05/06 2109 101 120/62 05/06 1458 98.7 139 18 110/58 93 Intake & Output 05/07 1600 05/07 0800 05/07 0000 Intake Total 520 708 Output Total 1050 Balance -530 708 Intake, IV 400 408 Intake, Oral 120 300 Output, Urine 1050 Physical Exam General Appearance: Alert, Oriented X3, Cooperative, No Acute Distress Skin: No Rashes, No Breakdown, No Significant Lesion Skin Temp/Moisture Exam: Warm/Dry Sepsis Skin Exam (color): Normal for Ethnicity HEENT: Atraumatic, PERRLA, EOMI, Mucous Membr. moist/pink Neck: Supple Cardiovascular: Normal S1, Normal S2, irregular irregular heart beats Lungs: Clear to Auscultation, Normal Air Movement Abdomen: Normal Bowel Sounds, Soft, No Tenderness Neurological: Normal Speech, Strength at 5/5 X4 Ext, Normal Tone Extremities: No Edema Current Medications: Current Medications Sig/Darya Start time Last Medication Dose Route Stop Time Status Admin Aspirin 81 MG AT BEDTIME 05/05 2200 AC 05/06 PO 2108 Atorvastatin Calcium 5 MG AT BEDTIME 05/05 2200 AC 05/06 PO 2108 Diltiazem HCl 125 MG Q12H 05/05 1030 AC 05/07 Dextrose/Water 100 ML IV 0703 Ezetimibe 10 MG AT BEDTIME 05/05 2200 AC 05/06 PO 2109 Fish Oil 1,050 MG DAILY 05/06 1000 AC 05/07 PO 0834 Furosemide 40 MG 7:30 AM, & 4:30 PM 05/06 0730 AC 05/07 IV 0625 Heparin Sodium 4,500 UNIT ONCE ONE 05/06 1215 DC 05/06 (Porcine) IV 05/06 1216 1229 Heparin Sodium/ 25,000 UNIT Q24H 05/05 1030 AC 05/06 Dextrose IV 2224 Dextrose/Water 500 ML Ibuprofen 400 MG Q6P PRN 05/05 1445 AC PO Lisinopril 20 MG AT BEDTIME 05/06 2200 AC 05/06 PO 210 Metoprolol Succinate 75 MG DAILY 05/06 1000 AC 05/07 PO 0834 Morphine Sulfate 4 MG Q4P PRN 05/05 1445 AC IV Last 24 Hrs of Lab/Nabeel Results Last 24 Hrs of Labs/Mics: Laboratory Tests 05/07/17 0617: Anion Gap 9, Estimated GFR > 60, BUN/Creatinine Ratio 17.8, APTT 79 H 05/06/17 1625: APTT 81 H 05/06/17 1030: APTT 52 H Assessment/Plan Assessment: Mr. 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 He presented on 05/05/17 to the ED after 2 weeks of progressive worsening of shortness of breath on exertion which was associated with palpitation and the patient says that he was seen a month ago by his concession stand attendant and didn't have any abnormalities in the ED the patient was started on Cardizem drip Problem list and plan: 1. Arterial flutter: * HR is better controlled today trending down to 70, continue to be atrial flutter , * Cardiology Recommend Cardioversion on May 08 if he does not convert spontaneously by then. * keep him nothing by mouth tonight after midnight * monitor in the telemetry unit * titrate down IV Cardizem drip as heart dropped down to 70 * Continue IV heparin drip for anticoagulation * will recontact his concession stand attendant on Saturday ( Dr. Neda Fu of [facility] about previous echocardiograms and recent visits) 2. CHF: * patient has minimal LE edema and his chest has minimal crackles on the back * Daily weights * check I&O * Diurese with IV Lasix 40 mg every 12 hours * Monitor BEP and electrolytes closely 3. Hypertension: * his blood pressure was well controlled at 124/64 today * Continue lisinopril 20 mg at bedtime for hypertension * Continue metoprolol XL 75 mg daily * hemoglobin A1c is 5.6 (was ordered on 05/05/17 to r/o diabetes) 4. Hyperlipidemia * will be kept on Lipitor 5 mg daily (patient used to take simvastatin 10 mg daily at home) 5. History of bioprosthetic aortic valve * Echocardiogram showed normal aortic valve leaflets and function 6. History of hepatitis C with failed interferon therapy * His liver function tests show elevated bilirubin of 1.9 predominantly unconjugated on 05/05/17, will follow up on his liver functions 7. DVT prophylaxis * IV heparin drip CODE STATUS * Full code Problem List: 1. Pulmonary edema 2. Atrial flutter 3. Congestive heart failure 4. Hypertension 5. Hyperlipidemia 6. History of hepatitis C virus infection Pain Ratin Pain Location: n/a Pain Goal: Remain pain free Pain Plan: By mouth Motrin 400 mg every 6 hours when necessary for [id number] pain, IV morphine 4 mg every 4 hours when necessary for severe pain Tomorrow's Labs & Rationales: BEP: pt is on Lasix
--- NOTE | 2017-05-07 13:27 | PN- Cardiology ---
Subjective Subjective: Feeling well. No chest pain. No palpitations. No lightheadedness or dizziness. No diaphoresis. No nausea or vomiting. The patient remains in atrial flutter on telemetry. Objective Vital Signs and I&Os Vital Signs Date Time Temp Pulse Resp B/P B/P Pulse O2 O2 Flow FiO2 Mean Ox Delivery Rate 05/07 0834 118 124/64 05/07 0647 97.6 64 20 124/80 96 Room Air 05/06 2303 98.6 65 16 128/64 95 Room Air 05/06 2109 101 120/62 05/06 1458 98.7 139 18 110/58 93 Intake & Output 05/07 1600 05/07 0800 05/07 0000 05/06 1600 05/06 0800 05/06 0000 Intake Total 520 708 752.4 955 Output Total 550 1050 438 927 4377 Balance -550 -530 708 102.4 -400 -45 Intake, IV 400 408 272.4 275 Intake, Oral 120 300 480 680 Output, Urine 550 1050 283 535 8763 Physical Exam: Gen: NAD HEENT: normal Lungs: clear to auscultation, normal resp. effort Heart: Irregularly irregular, S1, S2, no murmurs Abdomen: Soft, nontender, no masses Extremities: No clubbing, cyanosis, or edema. Neuro: Alert and oriented x 3, cranial nerves intact Current Medications: Current Medications Sig/Darya Start time Last Medication Dose Route Stop Time Status Admin Aspirin 81 MG AT BEDTIME 05/05 2200 AC 05/06 PO 2108 Atorvastatin Calcium 5 MG AT BEDTIME 05/05 2200 AC 05/06 PO 2108 Diltiazem HCl 125 MG Q12H 05/05 1030 AC 05/07 Dextrose/Water 100 ML IV 0703 Ezetimibe 10 MG AT BEDTIME 05/05 220 AC 05/06 PO 210 Fish Oil 1,050 MG DAILY 05/06 1000 AC 05/07 PO 0834 Furosemide 40 MG 7:30 AM, & 4:30 PM 05/06 0730 AC 05/07 IV 0625 Heparin Sodium/ 25,000 UNIT Q24H 05/05 1030 AC 05/07 Dextrose IV 1257 Dextrose/Water 500 ML Ibuprofen 400 MG Q6P PRN 05/05 1445 AC PO Lisinopril 20 MG AT BEDTIME 05/06 220 AC 05/06 PO 210 Metoprolol Succinate 75 MG DAILY 05/06 1000 AC 05/07 PO 0834 Morphine Sulfate 4 MG Q4P PRN 05/05 1445 AC IV Results Last 48 Hrs of Labs/Mics: Laboratory Tests 05/07/17 0617: Anion Gap 9, Estimated GFR > 60, BUN/Creatinine Ratio 17.8, APTT 79 H 05/06/17 1625: APTT 81 H 05/06/17 1030: APTT 52 H 05/06/17 0230: Anion Gap 10, Estimated GFR > 60, BUN/Creatinine Ratio 20.0, Triglycerides 62, Cholesterol 114, LDL Cholesterol, Calc 74, HDL Cholesterol 28 L, Cholesterol/ HDL Ratio 4, APTT > 120 *H, CBC w Diff NO MAN DIFF REQ, RBC 4.15 L, MCV 92.0, MCH 30.6, RDW 13.2, MPV 8.8, Gran % 48.3, Lymphocytes % 29.8, Monocytes % 16.5 H, Eosinophils % 5.0, Basophils % 0.4, Absolute Granulocytes 3.4, Absolute Lymphocytes 2.1, Absolute Monocytes 1.2 H, Absolute Eosinophils 0.4, Absolute Basophils 0, PUBS MCHC 33.3 05/05/17 2250: Troponin I 0.03 05/05/17 1650: Troponin I 0.03, PT 14.2 H, INR 1.36 H, APTT 43 H Recent Imaging Studies: CXR: Mild cardiomegaly. Interstitial pulmonary edema. No consolidation to suggest pneumonia. Assessment/Plan Assessment/Plan Assessment: 1. Bioprosthetic aortic valve replacement 2. Hypertension 3. Atrial flutter, new onset Plan: * Increase Toprol-XL to 150 mg daily with additional 75 mg dose today * Wean off IV diltiazem keeping ventricular rate < 110. * Continue IV heparin for now. Will change to oral anticoagulation prior to discharge. Continue telemetry? Yes
[2017-05-07 15:41] VITALS: BP 106/66
[2017-05-07 19:53] LABS: PTT 78 SEC (25-37)
[2017-05-07 22:00] VITALS: BP 110/70
--- NOTE | 2017-05-08 07:05 | PN- Housestaff ---
Subjective Follow-up For: 1. Atrial flutter with rapid ventricular rate( converted to NSR after cardioversion 2. Acute on chronic systolic Congestive heart failure 3. Hypertension 4. Hyperlipidemia Complaints: no complaints Tele-Events Since Last Visit: Elayne SANTIAGO Subjective: I HAVE PERSONALLY SEEN AND EXAMINED MR FERNANDA SARGENT THIS MORNING AT BED SIDE , HE LOOKED COMFORTABLE IN NO ACUTE DISTRESS, , AND REPORTED THAT HE DOESN 'T HAVE PALPITATION OR CHEST DISCOMFORT ANY MORE HEART RATE THIS MORNING WAS 64/ min BUT HE WAS NOT FEELING ANY DISCOMFORT YET HE WAS ANXIOUS ABOUT THE CARDIOVERSION PROCEDURE, I EXPALINED THE PROCEDURE TO HIM IN MORE DETAILS Review of Systems Constitutional: Denies: no symptoms. EENTM: Denies: no symptoms. Cardiovascular: Denies: no symptoms. Respiratory: Denies: no symptoms. Gastrointestinal: Denies: no symptoms. Objective Last 24 Hrs of Vital Signs/I&O Vital Signs Date Time Temp Pulse Resp B/P B/P Pulse O2 O2 Flow FiO2 Mean Ox Delivery Rate 05/08 0901 130 104/62 05/08 0728 97.7 84 18 100/62 95 Room Air / 2200 97.6 97 20 110/70 97 Room Air / 2132 90 120/70 07/ 1620 89 130/70 07/ 1541 97.1 65 18 106/66 95 Room Air Intake & Output / 1600 07/05 0800 07/05 0000 Intake Total 60 1430 Output Total 4447 109 0494 Balance -1100 -740 -20 Intake, IV 60 380 Intake, Oral 0 1050 Output, Urine 9910 453 2155 Physical Exam General Appearance: Alert, Oriented X3, Cooperative, No Acute Distress Skin: No Rashes, No Breakdown, No Significant Lesion Skin Temp/Moisture Exam: Warm/Dry Sepsis Skin Exam (color): Normal for Ethnicity HEENT: Atraumatic, PERRLA, EOMI, Mucous Membr. moist/pink Neck: Supple, No JVD Cardiovascular: Normal S1, Normal S2, No Murmurs, irregular irregular Lungs: Clear to Auscultation, Normal Air Movement Abdomen: Normal Bowel Sounds, Soft, No Tenderness Neurological: Normal Speech, Strength at 5/5 X4 Ext, Normal Tone Extremities: No Cyanosis, No Edema Current Medications: Current Medications Sig/Darya Start time Last Medication Dose Route Stop Time Status Admin Aspirin 81 MG AT BEDTIME 05/05 2200 AC 05/07 PO 2132 Atorvastatin Calcium 5 MG AT BEDTIME 05/05 2200 AC 05/07 PO 2132 Diltiazem HCl 125 MG Q12H 05/07 1900 AC 05/07 Dextrose/Water 100 ML IV 195 Diltiazem HCl 125 MG Q12H 05/05 1030 DC 05/07 Dextrose/Water 100 ML IV 05/07 1859 0703 Ezetimibe 10 MG AT BEDTIME 05/05 2200 AC 05/07 PO 2131 Fish Oil 1,050 MG DAILY 05/06 1000 AC 05/08 PO 0901 Furosemide 40 MG 7:30 AM, & 4:30 PM 05/06 0730 AC 05/08 IV 0628 Heparin Sodium/ 25,000 UNIT Q24H 05/05 1030 AC 05/08 Dextrose IV 0222 Dextrose/Water 500 ML Ibuprofen 400 MG Q6P PRN 05/05 1445 AC PO Lidocaine 0 .STK-MED ONE 05/08 1119 DC TOP Lisinopril 20 MG AT BEDTIME 05/06 2200 AC 05/07 PO 2132 Metoprolol Succinate 150 MG DAILY 05/08 1000 AC 05/08 PO 0901 Metoprolol Succinate 75 MG ONE ONE 05/07 1510 DC 05/07 PO 05/07 1511 1620 Metoprolol Succinate 75 MG DAILY 05/06 1000 DC 05/07 PO 0834 Morphine Sulfate 4 MG Q4P PRN 05/05 1445 AC IV Last 24 Hrs of Lab/Nabeel Results Last 24 Hrs of Labs/Mics: Laboratory Tests 05/08/17 0624: Anion Gap 11, APTT 75 H 05/07/17 1825: APTT 78 H Assessment/Plan Assessment: Mr. Puckett is a 62-year-old male with a past medical history of aortic valve replacement (pig valve in 2009 ;the patient is not sure if this was for aortic stenosis or bicuspid aortic valve), we obtained his medical record from his physician office nurse today, also the patient has PMH of hypertension, hyperlipidemia, asthma and hepatitis C. He presented on 05/05/17 to the ED after 2 weeks of progressive worsening of shortness of breath on exertion which was associated with palpitation and the patient says that he was seen a month ago by his physician office nurse and didn't have any abnormalities in the ED the patient was started on Cardizem drip Problem list and plan: 1. Arterial flutter( reverted to NSR after cardioversion: * HR this morning was trending at 120, atrial flutter. * converted to NSR after cardioversion * monitor in the telemetry unit * DC IV Cardizem drip according to cardiology recommendation * DC IV heparin drip for anticoagulation, start him on Eliquis later today * medical records were obtained today from his physician office nurse which showed tissue by prosthetic aVR, sinus bradycardia, proximal A. fib, left BBB, nondilated cardiomyopathy, chronic systolic CHF, hypertension, mixed hyperlipoproteniemia. 2. Acute on chronic systolic CHF( improved) * patient has minimal LE edema and his chest has minimal crackles on the back * Daily weights * check I&O * Diurese with IV Lasix 40 mg every 12 hours * Monitor BEP and electrolytes closely 3. Hypertension: * his blood pressure was well controlled at 104/62 today * Continue lisinopril 20 mg at bedtime for hypertension * Continue metoprolol XL 75 mg daily 4. Hyperlipidemia * will be kept on Lipitor 5 mg daily (patient used to take simvastatin 10 mg daily at home) 5. History of bioprosthetic aortic valve * Echocardiogram showed normal aortic valve leaflets and function 6. History of hepatitis C with failed interferon therapy * His liver function tests show elevated bilirubin of 1.9 predominantly unconjugated on 05/05/17, will follow up on his liver functions 7. DVT prophylaxis eliquis\ patient is stable and most likely will be discharged tomorrow if he remains in normal sinus rhythm CODE STATUS * Full code Problem List: 1. Atrial flutter 2. Congestive heart failure 3. Hypertension 4. Hyperlipidemia 5. History of hepatitis C virus infection 6. History of aortic valve replacement with bioprosthetic valve Pain Ratin Pain Location: N/A Pain Goal: Remain pain free Pain Plan: By mouth Motrin 400 mg every 6 hours when necessary for [id number] pain, IV morphine 4 mg every 4 hours when necessary for severe pain Tomorrow's Labs & Rationales: cbc without differential: patient has some cough and expectoration DVT/Prophylaxis: pharmacological
[2017-05-08 07:28] VITALS: BP 100/62
[2017-05-08 08:39] LABS: PTT 75 SEC (25-37)
--- NOTE | 2017-05-08 12:04 | Operative Report ---
Operative/Inv Procedure Report Surgery Date: 05/08/17 Name of Procedure: JASEN directed cardioversion Pre-Operative Diagnosis: Atrial flutter Post-Operative Diagnosis: Sinus rhythm Estimated Blood Loss: n/a Surgeon/Insurance Agency Manager: MIRTHA BARBOSA MD, V. Anesthesia: local monitored anesthesi Complications: None Operative/Procedure Note Note: The patient is a 62-year-old man who presented with atrial flutter with elevated heart rate and congestive heart failure. He has known underlying previous aortic valve replacement and mild dilated cardiomyopathy. The patient was treated with intravenous and oral diltiazem and Lopressor and intravenous heparin. The rhythm slowed but he did not convert to sinus rhythm. He was recommended a JASEN directed cardioversion and accepted. The patient was brought to the procedure room in the fasting state. Informed consents were signed and timeout was taken. Following this the patient was anesthetized per anesthesiology and when properly sedated the transesophageal probe was placed in the esophagus and full imaging took place. The left atrial appendage was clean and there were no thrombi in the left atrium. Following the JASEN the probe was removed and the patient placed back in supine position. He was still sedated. A 100 J synchronized biphasic shock was applied through anterior posterior pads and the patient converted immediately to sinus rhythm. He was allowed to awaken and will be transferred to the floor. He was mildly bradycardic and his Cardizem drip was stopped and should be discontinued at this time. Impression: Negative JASEN and successful cardioversion.
--- NOTE | 2017-05-08 12:06 | PN- Cardiology ---
Subjective Subjective: The patient remained in atrial flutter with variable ventricular response. Therefore he underwent JASEN directed cardioversion, which was successful in returning him to sinus rhythm. He was bradycardic after the cardioversion and his Cardizem drip has been discontinued. Objective Vital Signs and I&Os Vital Signs Date Time Temp Pulse Resp B/P B/P Pulse O2 O2 Flow FiO2 Mean Ox Delivery Rate 05/08 0901 130 104/62 / 0728 97.7 84 18 100/62 95 Room Air 05/07 2200 97.6 97 20 110/70 97 Room Air 05/07 2132 90 120/70 05/07 1620 89 130/70 05/07 1541 97.1 65 18 106/66 95 Room Air Intake & Output 05/08 1600 05/08 0800 05/08 0000 05/07 1600 05/07 0800 05/07 0000 Intake Total 60 1430 750 520 708 Output Total 8753 104 3119 1350 1050 Balance -1100 -740 -20 -600 -530 708 Intake, IV 60 380 350 400 408 Intake, Oral 0 1050 400 120 300 Output, Urine 5624 884 2411 1350 1050 Patient 233 lb Weight Weight Chair scale Measurement Method Physical Exam: He is in no distress HEENT exam normal Chest clear Heart regular rhythm and bradycardia no murmurs Extremities no edema Current Medications: Current Medications Sig/Darya Start time Last Medication Dose Route Stop Time Status Admin Aspirin 81 MG AT BEDTIME 05/05 2200 AC 05/07 PO 213 Atorvastatin Calcium 5 MG AT BEDTIME 05/05 220 AC 05/07 PO 213 Diltiazem HCl 125 MG Q12H 05/07 1900 AC 05/07 Dextrose/Water 100 ML IV 1952 Diltiazem HCl 125 MG Q12H 05/05 1030 DC 05/07 Dextrose/Water 100 ML IV 05/07 1859 0703 Ezetimibe 10 MG AT BEDTIME 05/05 2200 AC / PO 213 Fish Oil 1,050 MG DAILY 05/06 1000 AC 05/08 PO 0901 Furosemide 40 MG 7:30 AM, & 4:30 PM 05/06 0730 AC 07/05 IV 0628 Heparin Sodium/ 25,000 UNIT Q24H 05/05 1030 AC 07/05 Dextrose IV 0222 Dextrose/Water 500 ML Ibuprofen 400 MG Q6P PRN 05/05 1445 AC PO Lidocaine 0 .STK-MED ONE 05/08 1119 DC TOP Lisinopril 20 MG AT BEDTIME 05/06 2200 AC 05/07 PO 2132 Metoprolol Succinate 150 MG DAILY 05/08 1000 AC 05/08 PO 0901 Metoprolol Succinate 75 MG ONE ONE 05/07 1510 DC 05/07 PO 05/07 1511 1620 Metoprolol Succinate 75 MG DAILY 05/06 1000 DC 05/07 PO 0834 Morphine Sulfate 4 MG Q4P PRN 05/05 1445 AC IV Results Last 48 Hrs of Labs/Mics: Laboratory Tests 05/08/17 0624: Anion Gap 11, APTT 75 H 05/07/17 1825: APTT 78 H 05/07/17 0617: Anion Gap 9, Estimated GFR > 60, BUN/Creatinine Ratio 17.8, APTT 79 H 05/06/17 1625: APTT 81 H Assessment/Plan Assessment/Plan The patient has been cardioverted successfully. I recommend discontinuing heparin and starting him on Eliquis later today. Cardizem drip has been discontinued. If he remains bradycardic then we will cut back on his oral Cardizem or Lopressor. If he remains in sinus rhythm and his heart rate is acceptable he will be discharged tomorrow. Continue telemetry? Yes
[2017-05-08 13:20] VITALS: BP 100/62
[2017-05-08 15:40] VITALS: BP 116/72
[2017-05-08 23:19] VITALS: BP 106/74
--- NOTE | 2017-05-09 06:55 | PN- Housestaff ---
Subjective Follow-up For: 1. Atrial flutter with rapid ventricular rate( converted to NSR after cardioversion 2. Acute on chronic systolic Congestive heart failure 3. Hypertension 4. Hyperlipidemia Complaints: no complaints Tele-Events Since Last Visit: snr 69-87, no events Subjective: I HAVE PERSONALLY SEEN AND EXAMINED MR FERNANDA SARGENT THIS MORNING AT BED SIDE , HE LOOKED COMFORTABLE IN NO ACUTE DISTRESS, , AND REPORTED THAT HE DOESN 'T HAVE PALPITATION OR CHEST DISCOMFORT ANY MORE HEART RATE THIS MORNING REMAINED NSR AFTER CARDIOVERSION, PT REPORTS VERY MILD NON PROFUCTIVE COUGH Review of Systems Constitutional: Denies: no symptoms. EENTM: Denies: no symptoms. Cardiovascular: Denies: no symptoms. Respiratory: Reports: cough (MILD NO PRODUCTIVE). Gastrointestinal: Denies: no symptoms. Objective Last 24 Hrs of Vital Signs/I&O Vital Signs Date Time Temp Pulse Resp B/P B/P Pulse O2 O2 Flow FiO2 Mean Ox Delivery Rate 05/09 0832 132/74 /06 0657 97.5 70 20 120/84 97 Room Air 05/09 0000 Room Air / 2319 98.0 68 20 106/74 95 07/05 2140 75 106/74 Intake & Output / 1600 07/06 0800 07/06 0000 Intake Total 120 855 Output Total 675 200 650 Balance -675 -80 205 Intake, IV 175 Intake, Oral 120 680 Output, Urine 675 200 650 Physical Exam General Appearance: Alert, Oriented X3, Cooperative, No Acute Distress Skin: No Rashes, No Breakdown, No Significant Lesion Skin Temp/Moisture Exam: Warm/Dry Sepsis Skin Exam (color): Normal for Ethnicity HEENT: Atraumatic, Mucous Membr. moist/pink Cardiovascular: Regular Rate, Normal S1, Normal S2, No Murmurs Lungs: Clear to Auscultation, Normal Air Movement Abdomen: Normal Bowel Sounds, Soft, No Tenderness Extremities: No Edema Current Medications: Current Medications Sig/Darya Start time Last Medication Dose Route Stop Time Status Admin Apixaban 5 MG BID 05/08 2200 DCD 05/09 PO 0832 Aspirin 81 MG AT BEDTIME 05/050 DCD 07/ PO 2140 Atorvastatin Calcium 5 MG AT BEDTIME 05/05 2200 DCD 07/ PO 2140 Ezetimibe 10 MG AT BEDTIME 05/05 2200 DCD 07/ PO 2140 Fish Oil 1,050 MG DAILY 05/06 1000 DCD 05/09 PO 0832 Furosemide 40 MG 7:30 AM, & 4:30 PM 05/06 0730 DCD 05/09 IV 0833 Ibuprofen 400 MG Q6P PRN 05/05 1445 DCD PO Lisinopril 20 MG AT BEDTIME 05/06 2200 DCD 05/08 PO 2140 Metoprolol Succinate 150 MG DAILY 05/08 1000 DCD 05/09 PO 0832 Morphine Sulfate 4 MG Q4P PRN 05/05 1445 DCD IV Last 24 Hrs of Lab/Nabeel Results Last 24 Hrs of Labs/Mics: Laboratory Tests 05/09/17 0655: CBC w Diff NO MAN DIFF REQ, RBC 4.50 L, MCV 92.5, MCH 30.5, RDW 13.7, MPV 8.3, Gran % 53.1, Lymphocytes % 28.8, Monocytes % 12.9 H, Eosinophils % 4.8, Basophils % 0.4, Absolute Granulocytes 4.0, Absolute Lymphocytes 2.2, Absolute Monocytes 1.0 H, Absolute Eosinophils 0.4, Absolute Basophils 0, PUBS MCHC 33.0 Assessment/Plan Assessment: Mr. Puckett is a 62-year-old male with a past medical history of aortic valve replacement (pig valve in 2009 ;the patient is not sure if this was for aortic stenosis or bicuspid aortic valve), also the patient has PMH of hypertension, hyperlipidemia, asthma and hepatitis C. He presented on 05/05/17 to the ED after 2 weeks of progressive worsening of shortness of breath on exertion which was associated with palpitation and the patient says that he was seen a month ago by his edi programmer analyst and didn't have any abnormalities in the ED the patient was started on Cardizem drip Problem list and plan: 1. Arterial flutter( reverted to NSR after cardioversion: * HR this morning was trending 69-87, NSR * converted to NSR after cardioversion * DC IV Cardizem drip according to cardiology recommendation * DC IV heparin drip for anticoagulation, start him on Eliquis later today * medical records were obtained yesterday from his edi programmer analyst which showed tissue by prosthetic aVR, sinus bradycardia, proximal A. fib, left BBB, nondilated cardiomyopathy, chronic systolic CHF, hypertension, mixed hyperlipoproteniemia. 2. Acute on chronic systolic CHF( improved) * patient has minimal LE edema and his chest has minimal crackles on the back * Daily weights * check I&O * Diurese with IV Lasix 40 mg every 12 hours * Monitor BEP and electrolytes closely 3. Hypertension: * his blood pressure was well controlled at 132/74 today * Continue lisinopril 20 mg at bedtime for hypertension * Continue metoprolol XL 75 mg daily 4. Hyperlipidemia * will be kept on Lipitor 5 mg daily (patient used to take simvastatin 10 mg daily at home) 5. History of bioprosthetic aortic valve * Echocardiogram showed normal aortic valve leaflets and function 6. History of hepatitis C with failed interferon therapy * His liver function tests show elevated bilirubin of 1.9 predominantly unconjugated on 05/05/17, will follow up on his liver functions 7. DVT prophylaxis eliquis\ patient is stable for discharge today CODE STATUS * Full code Problem List: 1. Pulmonary edema 2. Atrial flutter 3. Congestive heart failure 4. Hypertension 5. Hyperlipidemia 6. History of hepatitis C virus infection 7. History of aortic valve replacement with bioprosthetic valve Pain Ratin Pain Location: n/a Pain Goal: Remain pain free Pain Plan: morphine sulphate ibuprofen Tomorrow's Labs & Rationales: pt will be DC today DVT/Prophylaxis: pharmacological
--- NOTE | 2017-05-09 06:55 | Discharge Summary ---
Visit Information Visit Dates Admission Date: 05/05/17 Discharge Date: 05/09/2017 Hospital Course Course Attending Physician: FAMILIA ANTHONY,MIRTHA Holland Primary Care Physician: MAITE REYNOSO MD Hospital Course: 62-year-old male with a PMH of aortic prosthetic aVR, sinus bradycardia, paroxsysmal A. fib, left BBB, nondilated cardiomyopathy, chronic systolic CHF, hypertension, mixed hyperlipoproteniemia. The patient was admitted to the telemetry unit for Atrial flutter with rapid ventricular rate. He was started on IV Cardizem drip and hepairin drip according to cardiology recommendation, then the heparin was discontinued and the patient was started on Eliquis 5 mg, the patient was followed up and he didn't convert to NSR for 2 days after which he had JASEN and cardioversion according to cardiology recommendation. After the cardioversion the patient converted to NSR, on discharge the patient Aspirin was discontinued and he was kept on Eliquis 5 mg po once daily as per cardiology recommendation Acute on chronic systolic CHF( improved)patient had minimal LE edema and his chest has minimal crackles on the back he was treated with with IV Lasix 40 mg every 12 hours , he was followed by Daily weights, check I&O and his BEP and electrolytes were closely monitored, Lasix which was changed into 40 mg once daily on discharge as per cardiology recommendation 3. Hypertension: his blood pressure was well controlled during his hospital stay,he was on lisinopril 20 mg at bedtime for hypertension, Continue metoprolol XL 75 mg daily, on discharge his meds were changed into metoprolol 100 mg once daily 4. Hyperlipidemi patient: while in hospital he was kept on Lipitor 5 mg daily on discharge patient was on [id number] 5.History of bioprosthetic aortic valve: Echocardiogram showed normal aortic valve leaflets and function 6. History of hepatitis C with failed interferon therapy: His liver function tests show elevated bilirubin of 1.9 predominantly unconjugated on 05/05/17, on discharge the patient was advised to follow up with his PCP Allergies: Coded Allergies: codeine (Intermediate, NAUSEA 05/05/17) Disposition Summary Disposition Principal Diagnosis: 1. Atrial flutter( converted to NSR after cardioversion) 2.acute on chronic Congestive heart failure Additional Diagnosis: 3. Hypertension 4. Hyperlipidemia 5. History of hepatitis C virus infection 6. History of aortic valve replacement with bioprosthetic valve Discharge Disposition: home or self care Discharge Instructions General Discharge Information Code Status: Full Code Patient's Diet: congestive heart failure diet Patient's Activity: as tolerated Follow-Up Instructions/Appts: Please follow up with your PCP within a week of discharge Please follow up with your landscape nurseryman within one week of discharge please take medication as instructed Medications at Discharge Discharge Medications: Stop taking the following medications: Metoprolol Succinate (Metoprolol Succinate) 50 MG TAB.ER.24H ORAL DAILY Aspirin (Aspirin*) 81 MG TAB.CHEW ORAL AT BEDTIME Continue taking these medications: Lisinopril (Lisinopril) 20 MG TABLET 1 Tablet ORAL DAILY Comments: GIVEN 05/08/17 @ 9:40 PM Fish Oil/Borage/Flax/Om3,6,9#1 ([place]ulah 3-6-9 1,200 MG Softgel) 1,200 MG CAPSULE 1 Capsule ORAL DAILY Comments: GIVEN 05/09/17 @ 0830 Ezetimibe/Simvastatin (Vytorin 10-10 MG Tablet) 10 MG-10 MG TABLET 1 Tablet ORAL DAILY Comments: GIVEN 05/08/17 @ 9:40 PM Start taking the following new medications: Metoprolol Succ XL (Toprol XL) 100 MG TAB.ER.24H 1 Tablet ORAL DAILY Qty = 30 No Refills Instructions: . Comments: GIVEN 05/09/17 @ 0830 Apixaban (Eliquis) 5 MG TABLET 1 Tablet ORAL TWICE DAILY Qty = 60 No Refills Instructions: . Comments: GIVEN 05/09/17 @ 0830 Copies To: CHOCO ANTHONY,LOGA Attending MD Review Statement Documenting Attending: MIRTHA OROPEZA MD, V. Other Findings: Agree with summary per Resident. Eyal Oropeza M.D.
[2017-05-09 06:57] VITALS: BP 120/84
[2017-05-09 07:58] LABS: ABSOLUTE BASOPHIL COUNT 0 /CUMM (0.0-0.2); ABSOLUTE EOSINOPHIL COUNT 0.4 /CUMM (0.0-0.7); ABSOLUTE LYMPH COUNT 2.2 /CUMM (1.2-3.4); BASOPHIL % 0.4 % (0.0-2.0); EOSINOPHIL % 4.8 % (0-5); GRANULOCYTE % 53.1 % (42.2-75.2); HEMATOCRIT 41.6 % (42-52); MEAN CORPUSCULAR HGB 30.5 PG (27.0-31.0); MEAN CORPUSCULAR VOLUME 92.5 FL (80.0-94.0); MEAN PLATELET VOLUME 8.3 FL (7.4-10.4); PLATELET COUNT 216 /CUMM (130-400); RBC DISTRIBUTION WIDTH 13.7 % (11.5-14.5); WHITE BLOOD CELL COUNT 7.6 /CUMM (4.8-10.8)
[2017-05-09 08:32] VITALS: BP 132/74
--- NOTE | 2017-05-09 10:02 | PN- Cardiology ---
Subjective Subjective: The patient has remained in sinus rhythm since his cardioversion. His heart rate is now in the 60s. He is on Eliquis and Toprol, lisinopril, Lasix and atorvastatin. He is eager to be discharged. Review of his records obtained from his regular rotary cutter Dr. Fu notes that he had aortic valve replacement due to aortic insufficiency and aortic aneurysm in 2009. He also had cardiomyopathy with left ventricular systolic function about 45%. Possibly this was due to advanced aortic regurgitation. On his last office visit on 05/2017 he was asymptomatic. His left ventricular systolic function was mildly reduced. He was on lisinopril and metoprolol and Vytorin at that time. Objective Vital Signs and I&Os Vital Signs Date Time Temp Pulse Resp B/P B/P Pulse O2 O2 Flow FiO2 Mean Ox Delivery Rate 05/09 0832 132/74 / 0657 97.5 70 20 120/84 97 Room Air 07/ 0000 Room Air 07/ 2319 98.0 68 20 106/74 95 07/05 2140 75 106/74 / 1600 96 Room Air 07/05 1540 98.5 63 18 116/72 96 Room Air 07/05 1320 98.0 54 20 100/62 95 Room Air Intake & Output 05/09 1600 / 0800 / 0000 / 1600 / 0800 / 0000 Intake Total 120 855 442 99 3083 Output Total 227 977 5978 800 1450 Balance -80 205 -670 -740 -20 Intake, IV 175 340 60 380 Intake, Oral 120 680 240 0 1050 Output, Urine 009 601 8686 800 1450 Physical Exam: He is in no distress Chest is clear Heart regular rhythm no murmurs No peripheral edema Current Medications: Current Medications Sig/Darya Start time Last Medication Dose Route Stop Time Status Admin Apixaban 5 MG BID 05/08 2200 AC 05/09 PO 0832 Apixaban 5 MG ONCE ONE 05/08 1615 DC 05/08 PO 05/08 161 1748 Aspirin 81 MG AT BEDTIME 05/05 2200 AC 05/08 PO 214 Atorvastatin Calcium 5 MG AT BEDTIME 05/05 2200 AC 05/08 PO 2140 Diltiazem HCl 125 MG Q12H 05/07 1900 DC 05/07 Dextrose/Water 100 ML IV 1952 Ezetimibe 10 MG AT BEDTIME 05/05 2200 AC 05/08 PO 2140 Fish Oil 1,050 MG DAILY 05/06 1000 AC 05/09 PO 0832 Furosemide 40 MG 7:30 AM, & 4:30 PM 05/06 0730 AC 05/09 IV 0833 Heparin Sodium/ 25,000 UNIT Q24H 05/05 1030 DC 05/08 Dextrose IV 0222 Dextrose/Water 500 ML Ibuprofen 400 MG Q6P PRN 05/05 1445 AC PO Lidocaine 0 .STK-MED ONE 05/08 1119 DC TOP Lisinopril 20 MG AT BEDTIME 05/06 2200 AC 05/08 PO 2140 Metoprolol Succinate 150 MG DAILY 05/08 1000 AC 05/09 PO 0832 Morphine Sulfate 4 MG Q4P PRN 05/05 1445 AC IV Results Last 48 Hrs of Labs/Mics: Laboratory Tests 05/09/17 0655: CBC w Diff NO MAN DIFF REQ, RBC 4.50 L, MCV 92.5, MCH 30.5, RDW 13.7, MPV 8.3, Gran % 53.1, Lymphocytes % 28.8, Monocytes % 12.9 H, Eosinophils % 4.8, Basophils % 0.4, Absolute Granulocytes 4.0, Absolute Lymphocytes 2.2, Absolute Monocytes 1.0 H, Absolute Eosinophils 0.4, Absolute Basophils 0, PUBS MCHC 33.0 05/08/17 1800: APTT Cancelled 05/08/17 0624: Anion Gap 11, APTT 75 H 05/07/17 1825: APTT 78 H Assessment/Plan Assessment/Plan The patient has been cardioverted successfully. He has maintained sinus rhythm. His acute on chronic congestive heart failure has improved. He can be discharged today. I recommend discharging him on Eliquis 5 mg twice daily, metoprolol 100 mg daily, Lisinopril 20 mg daily, Lasix 40 mg daily, his home dose of Vytorin. I would discontinue his aspirin since he doesn't have significant coronary disease and he will be fully anticoagulated. Continue telemetry? Not applicable
[2017-05-09] MEDS ORDERED: ATORVASTATIN CA10 M1 PO ×2 (11:06→11:14)
[2017-05-09] MEDS ORDERED: ELIQUIS5 M1 PO ×2 (11:06→11:14)
[2017-05-09] MEDS ORDERED: TOPROL XL100 M1 PO ×2 (11:07→11:14)
--- NOTE | 2017-05-09 11:17 | Patient Discharge Instructions ---
Discharge Instructions General Discharge Information You were seen/treated for: AFLUTTER Special Instructions: 1. PLEASE F/U WITH DR BARBOSA WITHIN 1 WEEK OF DISCHARGE. 2/. PLEASE F/U WITH PCP WITHIN 1 WEEK OF DISHARGE. Diet Recommended Diet: Heart Healthy, Regular no added salt Activity Full Activity/No Limits: Yes ( TOLERATED) Acute Coronary Syndrome Inclusion Criteria At DC or during hospital stay patient has or had the following: ACS DIAGNOSIS No Discharge Core Measures Meds if any: Prescribed or Continued at Discharge Meds if any: NOT Prescribed or Continued at Discharge Congestive Heart Failure Inclusion Criteria At DC or during hospital stay patient has or had the following: CHF DIAGNOSIS Yes Discharge Core Measures Meds if any: Prescribed or Continued at Discharge KRISTI/ARB for EF <40% Yes Meds if any: NOT Prescribed or Continued at Discharge Cerebrovascular accident Inclusion Criteria At DC or during hospital stay patient has or had the following: CVA/TIA Diagnosis No Discharge Core Measures Meds if any: Prescribed or Continued at Discharge Meds if any: NOT Prescribed or Continued at Discharge Venous thromboembolism Inclusion Criteria VTE Diagnosis No VTE Type NONE VTE Confirmed by (Test) NONE Discharge Core Measures - Per Current guidelines, there needs to be overlap - treatment for the first 5 days of Warfarin therapy. - If discharged on Warfarin prior to 5 days of - overlap therapy, the patient will need to be - assessed for post discharge needs including - *Post discharge parental anticoagulation - *Warfarin and/or parental anticoagulation education - *Follow up date to check INR post discharge At least 5 days overlap therapy as Inpatient No Meds if any: Prescribed or Continued at Discharge Note: Overlap Therapy is Warfarin and Anticoagulant Meds if any: NOT Prescribed or Continued at Discharge
--- NOTE | 2017-05-09 11:17 | ECHOCARDIOGRAM REPORT ---
JEF MICHAEL Age: 62 : Gender: M Exam Date: 05/08/2017 10:59 Exam Location: [address] Ht (in): 71 Wt (lb): 246 BSA: 2.40 BP: 114 / 82 Ordering Physician: ALEX OROPEZA MD Referring Physician: ALEX OROPEZA MD Technologist: Robbie Vargas [facility] Room Number: 179-1 Indications: AFIB/FLUTTER Rhythm: Atrial flutter Technical Quality: Good Medications Propofol administered by Anesthesiology. Ease of Transducer Insertion No Difficulty Complications None. Technical Difficulty None FINDINGS Left Ventricle Mildly reduced LV systolic function. Right Ventricle The right ventricle is normal in size and function. Right Atrium Mildly dilated Left Atrium Mildly dilated LA Appendage No thrombi IA Septum Intact Mitral Valve Mildly thickened MV leaflets, Mild MR Aortic Valve Bioprosthetic AV, normal leaflet motion, no AR. Tricuspid Valve The tricuspid valve is normal in structure and function. There is trace tricuspid regurgitation. Pulmonic Valve Structurally normal pulmonic valve. There is pulmonic regurgitation. Pericardium Normal pericardium without effusion. No pleural effusion. Great Vessels Grade 2 placquing of descending aorta. CONCLUSIONS Mildly reduced LV systolic function. Mildly dilated RA. Mildly dilated LA. No thrombi in LA or BLAIR Intact interatrial septum. Mildly thickened MV leaflets, Mild MR. Bioprosthetic AV, normal leaflet motion, no AR. Grade 2 placquing of descending aorta. Alex Oropeza M.D. (Electronically Signed) Final Date: 09 May 2017 11:16 MEASUREMENTS (Male / Female) Normal Values
== END 2017-05-09 12:47 | DRG 308 ==
LOC: ERH 08:32 → 1NO 10:12 → ERHI 10:12 → ENRESERV 11:00 → 1NO 12:33 → ENPENDDIS 05-09 11:19 → 1NO 05-09 12:47
PROVIDERS: Emergency Medicine; Internal Medicine; Podiatrist; Student in an Organized Health Care Education/Training Program; ADMIT Internal Medicine
PROC: B245ZZ4 Ultrasonography of Left Heart, Transesophageal (ICD-10-PCS; principal; 2017-05-08)
PROC: 5A2204Z Restoration of Cardiac Rhythm, Single (ICD-10-PCS; 2017-05-08)
DX: I48.92 Unspecified atrial flutter (principal); I50.23 Acute on chronic systolic (congestive) heart failure; I42.9 Cardiomyopathy, unspecified; Z95.2 Presence of prosthetic heart valve; I48.0 Paroxysmal atrial fibrillation; I11.0 Hypertensive heart disease with heart failure; R00.1 Bradycardia, unspecified; I44.7 Left bundle-branch block, unspecified; E78.2 Mixed hyperlipidemia; Z86.19 Personal history of other infectious and parasitic diseases; J45.909 Unspecified asthma, uncomplicated
CPT/HCPCS: 1NSP; 36415; 82436; 93005; 93010; 93325; 96374; 96375; 99291; C8929; J1644; J1940; J3490; J7060; Q9957